=== PATIENT | female | born 1995 | race Caucasian/White ===

== ENCOUNTER 2018-07-16 01:22 | Emergency (ER) | payer OTHER ==
[2018-07-16 01:22] VITALS: BMI 28.5
[2018-07-16 01:36] VITALS: BP 132/85; PULSE 107; RESP 20; TEMP 100.1; O2SAT 97
[2018-07-16 03:00] LABS: SQUAMOUS EPITHIAL 8 /hpf (0-5); URINE BILIRUBIN NEGATIVE (NEGATIVE); URINE BLOOD NEGATIVE (NEGATIVE); URINE CLARITY Clear (Clear); URINE COLOR Straw (YELLOW); URINE GLUCOSE (UA) NORMAL (Normal); URINE LEUKOCYTE ESTERASE TRACE Leu/uL (Negative); URINE PROTEIN NEGATIVE (NEGATIVE); URINE UROBILINOGEN NORMAL mg/dL (0.2-1.0)
[2018-07-16 03:05] LABS: HCG,QUALITATIVE URINE NEGATIVE (NEGATIVE)
--- NOTE | 2018-07-16 03:12 | C.PDOC ---
History Of Present Illness 22 year old female presents to the ER with a complaint of fever, chills, generalized body aches, sore throat, and runny nose since yesterday. Patient has been taking advil with no relief. Denies nausea, vomiting, or abdominal pain. Time Seen by Provider: 07/16/18 02:08 Chief Complaint (Nursing): Flu-like Symptoms History Per: Patient History/Exam Limitations: no limitations Onset/Duration Of Symptoms: Days Current Symptoms Are (Timing): Still Present Location Of Pain: Throat, Diffuse Myalgias Sick Contacts (Context): None Associated Symptoms: Fever, Chills, Sore Throat, Sinus Drainage, Myalgias. denies: Nausea, Vomiting, Other (Abdominal pain) Ear Symptoms: Bilateral: None Recent travel outside of the [place]: No Past Medical History Reviewed: Historical Data, Nursing Documentation, Vital Signs Vital Signs: Last Vital Signs Temp 100.1 F H 07/16/18 01:48 Pulse 107 H 07/16/18 01:48 Resp 20 07/16/18 01:48 BP 132/85 07/16/18 01:48 Pulse Ox 97 07/16/18 04:48 - Medical History PMH: No Chronic Diseases - [facility] MANUAL ASSIST DELIV NEC (05/11/15) Family History: States: Unknown Family Hx - Social History Hx Tobacco Use: No Hx Alcohol Use: No Hx Substance Use: No - Immunization History Hx Tetanus Toxoid Vaccination: No Hx Influenza Vaccination: No Hx Pneumococcal Vaccination: No Review Of Systems Constitutional: Positive for: Fever, Chills, Other (Generalized body aches) ENT: Positive for: Nose Discharge, Throat Pain Respiratory: Negative for: Cough Gastrointestinal: Negative for: Nausea, Vomiting, Abdominal Pain Physical Exam - Physical Exam Appears: Non-toxic Skin: Normal Color, Warm, Dry Head: Atraumatic, Normacephalic Eye(s): bilateral: Normal Inspection, EOMI Ear(s): Bilateral: Normal Nose: Normal Oral Mucosa: Moist Throat: Normal, No Erythema, No Exudate Neck: Normal, Supple Chest: Symmetrical, No Tenderness Cardiovascular: Rhythm Regular Respiratory: Normal Breath Sounds, No Rales, No Rhonchi, No Wheezing Gastrointestinal/Abdominal: Soft, No Tenderness Back: No CVA Tenderness Extremity: Bilateral: Atraumatic, Normal Color And Temperature, Normal ROM Neurological/Psych: Oriented x3, Normal Speech ED Course And Treatment O2 Sat by Pulse Oximetry: 97 Medical Decision Making Medical Decision Making: Impression: fever, bodyaches Plan: Flu test, UA Progress: Time: 309 Flu A+ Ordered Tamiflu On re-eval, patient resting in no distress. Discussed results with patient and plan for discharge with Rx. Counseling was provided regarding the diagnosis and prognosis. Patient advised to rest and take Tylenol or Motrin for fever. Patient is stable for discharge. Advised to return if symptoms persist or worsen. Disposition Counseled Patient/Family Regarding: Diagnosis, Need For Followup, Rx Given - Disposition Referrals: [facility] [Outside] [facility] Disposition: HOME/ ROUTINE Disposition Time: 03:09 Condition: STABLE Additional Instructions: Take Tamiflue twice a day for 5 days. Take Tylenol or Motrin alternating every 4 -6 hours for Fever 100.4F or higher. Rest and drink plenty of fluids. May use cool mist humidifier or vaporizer in room. Follow up with your primary medical doctor or clinic in 1 week for further evaluation. Prescriptions: Oseltamivir [Tamiflu] 75 mg PO BID #10 cap Instructions: Flu, Adult (DC) Forms: [facility] (Italian), Work Excuse - POA Present On Arrival: None - Clinical Impression Clinical Impression: Influenza A - PA / CORPORATE QUALITY MANAGER / Resident Statement MD/DO has reviewed & agrees with the documentation as recorded. - Scribe Statement The provider has reviewed the documentation as recorded by the Scribe Mathieu Armstrong All medical record entries made by the Scribe were at my direction and personally dictated by me. I have reviewed the chart and agree that the record accurately reflects my personal performance of the history, physical exam, medical decision making, and the department course for this patient. I have also personally directed, reviewed, and agree with the discharge instructions and disposition.
== END 2018-07-16 03:31 | disposition home or self-care (01) ==
LOC: C.ER 01:22
DX: J09.X2 Influenza due to identified novel influenza A virus with other respiratory manifestations (principal)